=== PATIENT | female | born 1990 | race Two or more races ===

== ENCOUNTER 2021-06-09 13:24 | Emergency (ER) | payer SELFPAY ==
[2021-06-09 13:39] VITALS: BP 125/73; PULSE 110; TEMP 98.2; BMI 22.0
[2021-06-09] MEDS ORDERED: ACETAMINOPHEN 1000 MG/100 ML BAG IVPB ONE (14:10)
[2021-06-09] MEDS ORDERED: SODIUM CHLORIDE 1,000 ML IV STA (14:10)
[2021-06-09] MEDS ORDERED: ACETAMINOPHEN INJECTION 100 ML IVPB ONE (14:13)
[2021-06-09 14:35] LABS: HCG,QUALITATIVE URINE Positive
[2021-06-09 14:38] LABS: EPI CELLS 27 /uL (0-25.1); HYALINE CASTS 0 /uL (0-3.1); URINE APPEARANCE CLEAR; URINE BACTERIA 419 /uL (0-1359); URINE BILIRUBIN NEGATIVE (NEGATIVE); URINE COLOR YELLOW; URINE GLUCOSE (UA) NEGATIVE (NEGATIVE); URINE KETONE NEGATIVE (NEGATIVE); URINE LEUK ESTERASE TRACE (NEGATIVE); URINE NITRITE NEGATIVE (NEGATIVE); URINE PROTEIN NEGATIVE (NEGATIVE); URINE RBC 12 /uL (0-23.9); URINE UROBILINOGEN 0.2 mg/dL (0.2-1.0); URINE WBC 18 /uL (0-25.8)
[2021-06-09 14:44] LABS: BASO % 0.4 % (0-2.0); EOS % 0.4 % (0-4.5); HEMATOCRIT 33.7 % (32.4-45.2); HEMOGLOBIN 11.3 GM/dL (10.7-15.3); LYMPH % 14.9 % (8-40); MCH 29.9 pg (25.7-33.7); MCHC 33.4 g/dl (32.0-36.0); MEAN CELL VOLUME 89.4 fl (80-96); MEAN PLT VOLUME 8.5 fl (7.5-11.1); MONO % 6.5 % (3.8-10.2); NEUT % 77.8 % (42.8-82.8); PLATELET COUNT 253 10^3/uL (134-434); RBC 3.77 M/mm3 (3.60-5.2); RDW 14.5 % (11.6-15.6); WHITE BLOOD COUNT 11.8 K/mm3 (4.0-10.0)
[2021-06-09 15:03] LABS: CALCIUM 8.8 mg/dL (8.5-10.1)
[2021-06-09 15:04] LABS: BLOOD UREA NITROGEN 9.2 mg/dL (7-18)
[2021-06-09 15:08] LABS: CREATININE 0.5 mg/dL (0.55-1.3)
[2021-06-09 15:09] LABS: BILIRUBIN,TOTAL 0.2 mg/dL (0.2-1); TOT PROT 7.2 g/dl (6.4-8.2)
== END 2021-06-09 16:05 | disposition home or self-care (01) ==
LOC: JERFT 13:24 → JER 13:24 → JERFT 16:05
PROC: 3E0333Z Introduction of Anti-inflammatory into Peripheral Vein, Percutaneous Approach (ICD-10-PCS; principal; 2021-06-09)
PROC: 3E0337Z Introduction of Electrolytic and Water Balance Substance into Peripheral Vein, Percutaneous Approach (ICD-10-PCS; 2021-06-09)
DX: H66.003 Acute suppurative otitis media without spontaneous rupture of ear drum, bilateral (principal); H92.02 Otalgia, left ear; R10.32 Left lower quadrant pain
CPT/HCPCS: 36415; 76801-TC; 80053; 81003; 84702; 84703; 85025; 86850; 86900; 86901; 87491; 87591; 99284-25

== ENCOUNTER 2021-06-11 08:41 | Emergency (ER) | payer SELFPAY ==
[2021-06-11 08:48] VITALS: BP 111/65; PULSE 103; TEMP 97.8; BMI 21.3
[2021-06-11] MEDS ORDERED: ACETAMINOPHEN 1000 MG/100 ML BAG IVPB ONE (09:25)
[2021-06-11] MEDS ORDERED: SODIUM CHLORIDE 0.9% 500 ML INFUS.BAG IV ONE (09:25)
[2021-06-11] MEDS ORDERED: METOCLOPRAMIDE HCL INJECTION 10 MG/2 ML VIAL IVPUSH ONE (09:29)
[2021-06-11] MEDS ORDERED: ACETAMINOPHEN INJECTION 100 ML IVPB ONE (11:49)
[2021-06-11] MEDS ORDERED: METOCLOPRAMIDE HCL INJECTION 10 MG/2 ML VIAL ONE (11:49)
[2021-06-11 12:01] LABS: BASO % 0.3 % (0-2.0); EOS % 0.3 % (0-4.5); HEMATOCRIT 30.8 % (32.4-45.2); HEMOGLOBIN 10.5 GM/dL (10.7-15.3); LYMPH % 11.5 % (8-40); MCH 30.3 pg (25.7-33.7); MCHC 34.2 g/dl (32.0-36.0); MEAN CELL VOLUME 88.6 fl (80-96); MEAN PLT VOLUME 8.1 fl (7.5-11.1); MONO % 5.8 % (3.8-10.2); NEUT % 82.1 % (42.8-82.8); PLATELET COUNT 243 10^3/uL (134-434); RBC 3.48 M/mm3 (3.60-5.2); RDW 14.4 % (11.6-15.6); WHITE BLOOD COUNT 11.3 K/mm3 (4.0-10.0)
[2021-06-11 12:29] LABS: CALCIUM 8.8 mg/dL (8.5-10.1)
[2021-06-11 12:30] LABS: ALBUMIN 2.7 g/dl (3.4-5.0); BLOOD UREA NITROGEN 5.6 mg/dL (7-18)
[2021-06-11 12:33] LABS: CREATININE 0.4 mg/dL (0.55-1.3)
[2021-06-11 12:34] LABS: BILIRUBIN,TOTAL 0.4 mg/dL (0.2-1); TOT PROT 6.8 g/dl (6.4-8.2)
== END 2021-06-11 13:45 | disposition home or self-care (01) ==
LOC: JERFT 08:41 → JER 08:41
PROC: 3E0333Z Introduction of Anti-inflammatory into Peripheral Vein, Percutaneous Approach (ICD-10-PCS; principal; 2021-06-11)
DX: H65.193 Other acute nonsuppurative otitis media, bilateral (principal)
CPT/HCPCS: 36415; 80053; 85025; 99284-25

== ENCOUNTER 2021-11-19 08:30 | Inpatient (IN) | payer OTHER ==
[2021-11-19] MEDS ORDERED: ELECTROLYTE-148 SOLN 1,000 ML IV SCH (10:30)
[2021-11-19 11:18] LABS: BASO % 0.2 % (0-2.0); EOS % 0.3 % (0-4.5); HEMATOCRIT 30.5 % (32.4-45.2); HEMOGLOBIN 10.3 GM/dL (10.7-15.3); LYMPH % 15.1 % (8-40); MCH 26.6 pg (25.7-33.7); MCHC 33.6 g/dl (32.0-36.0); MEAN CELL VOLUME 79.1 fl (80-96); MEAN PLT VOLUME 8.7 fl (7.5-11.1); MONO % 5.2 % (3.8-10.2); NEUT % 79.2 % (42.8-82.8); PLATELET COUNT 199 10^3/uL (134-434); RBC 3.86 M/mm3 (3.60-5.2); RDW 17.3 % (11.6-15.6); WHITE BLOOD COUNT 9.2 K/mm3 (4.0-10.0)
[2021-11-19 11:23] LABS: INR 1.03 (0.83-1.09); PROTHROMBIN TIME (PATIENT) 11.8 SEC (9.7-13.0)
[2021-11-19 11:25] LABS: ACTIVATED PTT 23.6 SECONDS (25.2-36.5)
[2021-11-19 11:36] LABS: CALCIUM 8.4 mg/dL (8.5-10.1)
[2021-11-19 11:37] LABS: BLOOD UREA NITROGEN 8.6 mg/dL (7-18)
[2021-11-19 11:40] LABS: CREATININE 0.5 mg/dL (0.55-1.3)
[2021-11-19 11:41] VITALS: BMI 26.9
[2021-11-19] MEDS ORDERED: CITRIC ACID/SODIUM CITRATE 30 ML UNIT-DOSE CUP PO ONE (11:56)
[2021-11-19] MEDS ORDERED: ELECTROLYTE-148 SOLN 500 ML IV ONE (11:56)
[2021-11-19] MEDS ORDERED: ACETAMINOPHEN 325 MG TABLET (FP) PO PRN (12:32)
[2021-11-19] MEDS ORDERED: IBUPROFEN 800 MG/8 ML IJ IVPB PRN (12:32)
[2021-11-19] MEDS ORDERED: OXYTOCIN 10 UNITS/ML VIAL ONE (13:27)
[2021-11-19] MEDS ORDERED: morphine SULFATE/PF 1 MG/2 ML (2cc Syringe - QUVA) ONE (13:27)
[2021-11-19] MEDS ORDERED: ceFAZolin SODIUM 1 GM VIAL ONE (13:34)
[2021-11-19] MEDS ORDERED: SODIUM CHLORIDE 0.9% P/F 10 ML VIAL IJ ONE (13:34)
[2021-11-19] MEDS ORDERED: LIDOCAINE HCL/PF 2% SDV 5ML VIAL ONE (14:16)
[2021-11-19] MEDS ORDERED: ONDANSETRON 4 MG/2 ML VIAL IVPUSH PRN (14:53)
[2021-11-19] MEDS ORDERED: OXYTOCIN 20 UNITS in 0.9% NS 20 UNIT/1,000 ML INFUS.BAG IV ONE (14:54)
[2021-11-19] MEDS: OXYTOCIN 20 UNITS in 0.9% NS 20 UNIT/1,000 ML INFUS.BAG IV SCH ×2 (15:00→23:00)
[2021-11-19] MEDS ORDERED: ACETAMINOPHEN INJECTION 100 ML IVPB ONE (16:48)
[2021-11-19] MEDS ORDERED: ACETAMINOPHEN 1000 MG/100 ML BAG IVPB ONE (17:00)
[2021-11-19 17:50] VITALS: RESP 18
[2021-11-20] MEDS: oxyCODONE HCL 5 MG TABLET PO PRN ×2 (03:56→21:36)
[2021-11-20] MEDS: SIMETHICONE 80 MG TAB.CHEW (FP) PO PRN ×4 (03:56→21:34)
[2021-11-20] MEDS: IBUPROFEN 600 MG TABLET (FP) PO PRN ×2 (08:31→14:33)
[2021-11-20 09:40] LABS: BASO % 0.2 % (0-2.0); EOS % 0.2 % (0-4.5); HEMATOCRIT 29.1 % (32.4-45.2); HEMOGLOBIN 9.5 GM/dL (10.7-15.3); LYMPH % 13.6 % (8-40); MCH 25.8 pg (25.7-33.7); MCHC 32.5 g/dl (32.0-36.0); MEAN CELL VOLUME 79.3 fl (80-96); MEAN PLT VOLUME 8.6 fl (7.5-11.1); MONO % 5.8 % (3.8-10.2); NEUT % 80.2 % (42.8-82.8); PLATELET COUNT 174 10^3/uL (134-434); RBC 3.67 M/mm3 (3.60-5.2); RDW 17.3 % (11.6-15.6); WHITE BLOOD COUNT 9.4 K/mm3 (4.0-10.0)
[2021-11-20] MEDS ORDERED: DIPHTH,PERTUSS(ACELL),TET 0.5 ML DISP.SYRIN IM ONE (10:00)
[2021-11-20] MEDS ORDERED: BISACODYL 10 MG SUPP.RECT RC PRN (12:32)
[2021-11-20] MEDS: OXYTOCIN 20 UNITS in 0.9% NS 20 UNIT/1,000 ML INFUS.BAG IV SCH (23:28)
[2021-11-21] MEDS: IBUPROFEN 600 MG TABLET (FP) PO PRN ×2 (03:25→20:11)
[2021-11-21] MEDS: SIMETHICONE 80 MG TAB.CHEW (FP) PO PRN ×3 (08:16→20:11)
[2021-11-21] MEDS: oxyCODONE HCL 5 MG TABLET PO PRN ×2 (08:16→14:05)
[2021-11-22] MEDS: SIMETHICONE 80 MG TAB.CHEW (FP) PO PRN ×2 (00:40→08:15)
[2021-11-22] MEDS: IBUPROFEN 600 MG TABLET (FP) PO PRN (00:41)
[2021-11-22] MEDS: oxyCODONE HCL 5 MG TABLET PO PRN (08:15)
[2021-11-22 08:49] LABS: BASO % 0.2 % (0-2.0); EOS % 1.6 % (0-4.5); HEMATOCRIT 25.6 % (32.4-45.2); HEMOGLOBIN 8.3 GM/dL (10.7-15.3); LYMPH % 25.8 % (8-40); MCH 25.9 pg (25.7-33.7); MCHC 32.4 g/dl (32.0-36.0); MEAN CELL VOLUME 80.1 fl (80-96); MEAN PLT VOLUME 8.2 fl (7.5-11.1); MONO % 6.5 % (3.8-10.2); NEUT % 65.9 % (42.8-82.8); PLATELET COUNT 212 10^3/uL (134-434); RDW 17.3 % (11.6-15.6); WHITE BLOOD COUNT 7.6 K/mm3 (4.0-10.0)
[2021-11-22 11:33] VITALS: BP 112/58; PULSE 65; TEMP 98.5
== END 2021-11-22 14:10 | disposition home or self-care (01) | DRG 540 ==
LOC: JDEL 08:30 → JLDR 10:15 → J3W 17:25
PROVIDERS: ADMIT Student in an Organized Health Care Education/Training Program; ATTEND Student in an Organized Health Care Education/Training Program
PROC: 10D00Z1 Extraction of Products of Conception, Low, Open Approach (ICD-10-PCS; principal; 2021-11-19)
DX: O34.211 Maternal care for low transverse scar from previous cesarean delivery (principal); O24.420 Gestational diabetes mellitus in childbirth, diet controlled; O99.02 Anemia complicating childbirth; D64.9 Anemia, unspecified; Z3A.39 39 weeks gestation of pregnancy; Z37.0 Single live birth
CPT/HCPCS: 36415; 59025; 80048; 85025; 85610; 85730; 86780; 86850; 86900; 86901; 88304-TC; 88307-TC; 90715; C9803-CS; U0003; U0005

== ENCOUNTER 2024-08-31 14:55 | Emergency (ER) | payer OTHER ==
[2024-08-31 15:12] VITALS: BP 107/79; PULSE 95; RESP 16; TEMP 98.2; BMI 22.4
[2024-08-31] MEDS ORDERED: TETRACAINE 0.5% OPHTH SOLN 2 ML BOTTLE ONE (16:02)
[2024-08-31] MEDS ORDERED: FLUORESCEIN NA 1 EA STRIP ONE (16:02)
[2024-08-31] MEDS: TETRACAINE 0.5% HCL 0.6ML DROPPER.BOTTLE OS ONE (16:10)
[2024-08-31] MEDS: FLUORESCEIN NA 1 EA STRIP OS ONE (16:10)
[2024-08-31] MEDS ORDERED: ACETAMINOPHEN 325 MG TABLET (FP) ONE (16:30)
[2024-08-31] MEDS: ACETAMINOPHEN 500 MG TABLET (FP) PO ONE (16:42)
[2024-08-31 18:34] LABS: HIV INTERPRETATION NEGATIVE (NEGATIVE)
[2024-08-31 18:36] LABS: HCV DIAGNOSTIC IN-HOUSE W/RFLX NON-REACTIVE (NONREACTIVE)
== END 2024-08-31 18:15 | disposition home or self-care (01) ==
LOC: JER 14:55
DX: H57.12 Ocular pain, left eye (principal); R53.1 Weakness; R51.9 Headache, unspecified; L29.9 Pruritus, unspecified; H57.89 Other specified disorders of eye and adnexa; Z32.01 Encounter for pregnancy test, result positive
CPT/HCPCS: 36415; 84703; 86803; 87389; 87637-QW; 99283-25